=== PATIENT | female | born 1965 | race Caucasian/White ===

== ENCOUNTER 2024-05-22 07:51 | Day surgery (SDC) | payer OTHER, SELFPAY ==
[2024-05-22] VITALS (15 sets, daily range): BP systolic 95–148; BP diastolic 34–94; BMI 36.0
[2024-05-22 09:00] LABS: Hematocrit 36.1 % (37.0-47.0); Hemoglobin 12.6 g/dL (12.0-16.0); Mean Corp Hgb Conc. 34.9 g/dL (33.0-37.0); Mean Corpuscular Hgb 30.3 pg (27.0-31.0); Mean Corpuscular Volume 86.8 fL (81.0-99.0); Mean Platelet Volume 9.9 fL (7.4-10.4); Platelet Count 288 10^3/uL (130-400); Red Blood Cell Count 4.16 10^6/uL (4.20-5.40); Red Cell Dist. Width 13.7 % (11.5-14.5); White Blood Cell Count 6.8 10^3/uL (4.8-10.8)
[2024-05-22 09:09] LABS: INR 1.05; PT 13.6 Sec (11.4-14.6)
[2024-05-22 09:10] LABS: APTT 26.9 Sec (23.4-35.0)
[2024-05-22 09:12] LABS: Blood Urea Nitrogen 15 mg/dl (7-17); Calcium 9.8 mg/dl (8.4-10.2); Carbon Dioxide 27 mmol/L (22-30); Chloride 105 mmol/L (98-107); Estimated Creatinine Clearance 70 ml/min; Glucose 144 mg/dl (70-99); Potassium 4.1 mmol/L (3.5-5.1); Sodium 139 mmol/L (135-145); eGFR > 60.00
[2024-05-22] MEDS: NSS 267 ML IV (09:41)
--- NOTE | 2024-05-22 10:08 | W.SUR.PREOP ---
Pre-Operative Surgical Note
-
I have examined this patient prior to the performance of the scheduled procedure.
The patient's condition is unchanged from the time of the current History and
Physical and the patient is able to undergo the scheduled procedure.
--- NOTE | 2024-05-22 12:05 | W.SUR.POST ---
Surgical Immediate Post Op
Note
Pre Op Diagnosis: Peripheral arterial disease
Post Op Diagnosis: Peripheral arterial disease
Procedure Performed: Bilateral lower extremity angiogram
Primary Surgeon: Jayson Akbar MD
Secondary Surgeons: Kailash Acosta MD, PhD
Anesthesia: Per Anesthesia
Estimated Blood Loss: 50 cc
Fluids: Per Anesthesia
Drains/Shunts: None
Specimens/Cultures: None
Doppler/Duplex/Angio (Y/N): Yes
Complications: None
Operative Findings: Diagnostic angiogram; RIGHT: 1-2 cm SFA stump, popliteal reconstitution with single vessel (AT) run off and Peroneal reconstitution distally followed by PT reconstitution at the ankle; LEFT: 2 cm SFA stump, popliteal
reconstitution, two vessel run off (AT and Peroneal)
[2024-05-22 12:57] LABS: Glucose - Point of Care 147 mg/dl (70-99)
[2024-05-22] MEDS: NSS 1000 IV (14:07)
[2024-05-22 15:47] LABS: Glucose - Point of Care 168 mg/dl (70-99)
[2024-05-22] MEDS: NOVOLOG vial 1 UNITS SC (16:12)
--- NOTE | 2024-05-22 16:23 | OR.RPT ---
Operative Report
Operative Report
Date of Operation: 05/22/2024
Pre Op Diagnosis: Debilitating bilateral lower extremity claudication
Post Op Diagnosis: Debilitating bilateral lower extremity claudication
Procedure:
1.) Selective catheterization of second-order lower extremity artery
2.) Diagnostic aortobiiliac arteriogram
3.) Diagnostic BILATERAL lower extremity arteriogram
4.) Ultrasound-guided percutaneous access to the left common femoral artery
Surgeon: Jayson Akbar III, MD
M[employer]al [employer]: Kailash Acosta MD PhD PGY-6
Anesthesia: Sedation with local
Fluoroscopy:
9.6 min
124 mGy
44.95 Gy.cm2
Complications: None
Estimated Blood Loss: Minimal
History and Indications for Procedure: 59-year-old female with peripheral arterial occlusive disease and severe bilateral lower extremity claudication.
Procedure in Detail: Cynthia Ellis was correctly identified and placed supine on the operating table. After adequate induction of anesthesia the bilateral groins were prepped and draped in the usual sterile fashion. A timeout was performed with
the nursing and anesthesia staff confirming the patient's identity as well as the nature and laterality of the procedure.
The left common femoral artery was identified under ultrasound guidance. The artery was patent. The superior and inferior aspects of the femoral head were identified with radiographic guidance and marked at the skin level. The proposed puncture site
was infiltrated with local anesthesia. We saved a copy of the ultrasound image to the medical record. Under ultrasound guidance we accessed the left common femoral artery with a micropuncture needle and upsized to a 5 Fr sheath over a Bentson wire.
The wire and a [employer] hook flush catheter were advanced into the distal abdominal aorta and a diagnostic aorto-biiliac arteriogram was performed:
AORTO-ILIAC ARTERIOGRAM:
Aorta: Patent with no stenosis identified
Right common iliac artery: Patent with no stenosis identified
Right external iliac artery: Patent with no stenosis identified
Left common iliac artery: Patent with no stenosis identified
Left external iliac artery: Patent with no stenosis identified
Under roadmap guidance using a Glidewire and the [employer] hook catheter we selected the right common iliac artery and then the external iliac artery. A catheter was tracked up and over the aortic bifurcation and placed in the distal external iliac
artery. A diagnostic right lower extremity arteriogram was then performed which demonstrated the following:
RIGHT LOWER EXTREMITY:
Common femoral artery: Patent with no stenosis identified
Profunda femoral artery: Patent with no stenosis identified
Superficial femoral artery: Short patent stump and then occluded thereafter. No distal reconstitution
Popliteal artery: Occluded above the knee. Reconstitutes behind the knee at the tibial plateau. Patent distally with no stenosis identified
Anterior tibial artery: Patent as the single tibial runoff vessel. No stenosis identified. Crosses the foot deform the dorsalis pedis artery
Tibioperoneal trunk: Occluded
Peroneal artery: Occluded with distal reconstitution at the ankle
Posterior tibial artery: Occluded with distal reconstitution at the ankle
We then pulled the catheter from the 5 Salvadorean sheath. A left lower extremity runoff arteriogram was performed.
LEFT LOWER EXTREMITY:
Common femoral artery: Patent with no stenosis identified
Profunda femoral artery: Patent with no stenosis identified
Superficial femoral artery: Short stump patent but then occludes.
Popliteal artery: Reconstitutes above the knee. Patent with no stenosis identified
Two-vessel tibial runoff identified via the anterior tibial and peroneal artery. Posterior tibial artery occluded
Satisfied with this diagnostic result we then concluded the procedure. The patient tolerated the procedure well and was taken to the recovery area in stable condition.
Attestation: I was present and responsible for the entire procedure.
Signed:
Jayson Akbar III, MD
[facility]
[phone] (xbhe)
== END 2024-05-22 18:10 | disposition home or self-care (01) ==
LOC: CATH 07:51
PROVIDERS: ATTENDING PHYSICIAN Surgery Vascular Surgery; FAMILY PHYSICIAN Family Medicine; OTHER PHYSICIAN Internal Medicine Cardiovascular Disease
DX: I70.212 Atherosclerosis of native arteries of extremities with intermittent claudication, left leg (principal); I70.221 Atherosclerosis of native arteries of extremities with rest pain, right leg; Z87.891 Personal history of nicotine dependence; Z79.82 Long term (current) use of aspirin; Z79.84 Long term (current) use of oral hypoglycemic drugs; Z79.02 Long term (current) use of antithrombotics/antiplatelets; Z79.01 Long term (current) use of anticoagulants; Z79.899 Other long term (current) drug therapy; E11.9 Type 2 diabetes mellitus without complications; Z86.73 Personal history of transient ischemic attack (TIA), and cerebral infarction without residual deficits; Z89.411 Acquired absence of right great toe
CPT/HCPCS: 36246; 75625; 75716; 76937; 80048; 82962; 85027; 85610; 85730; C1894; Q9967

== ENCOUNTER 2024-06-08 09:58 | Inpatient (IN) | payer OTHER, SELFPAY ==
[2024-06-02 09:18] VITALS: BMI 36.2
[2024-06-02 09:46] LABS: % Basophils 0.6 % (0-2); % Eosinophils 4.2 % (0-6); % Immature Granulocytes 0.3 % (0-0.5); % Lymphocytes 25.3 % (20.5-51.1); % Monocytes 5.3 % (1.7-9.3); % Neutrophils 64.3 % (42.2-75.2); Absolute Basophils 0.1 10^3/uL (0-0.2); Absolute Eosinophils 0.4 10^3/uL (0-0.7); Absolute Lymphocytes 2.2 10^3/uL (1.2-3.4); Absolute Monocytes 0.5 10^3/uL (0.1-0.6); Absolute Neutrophils 5.6 10^3/uL (1.4-6.5); Hematocrit 37.9 % (37.0-47.0); Hemoglobin 12.8 g/dL (12.0-16.0); Mean Corp Hgb Conc. 33.8 g/dL (33.0-37.0); Mean Corpuscular Hgb 30.4 pg (27.0-31.0); Mean Platelet Volume 9.8 fL (7.4-10.4); Nucleated Red Blood Cells % 0 %; Platelet Count 284 10^3/uL (130-400); Red Blood Cell Count 4.21 10^6/uL (4.20-5.40); Red Cell Dist. Width 13.7 % (11.5-14.5); White Blood Cell Count 8.7 10^3/uL (4.8-10.8)
[2024-06-02 09:59] LABS: INR 1.03; PT 13.4 Sec (11.4-14.6)
[2024-06-02 10:00] LABS: APTT 30.9 Sec (23.4-35.0)
[2024-06-02 10:03] LABS: Blood Urea Nitrogen 22 mg/dl (7-17); Calcium 10.1 mg/dl (8.4-10.2); Carbon Dioxide 24 mmol/L (22-30); Chloride 102 mmol/L (98-107); Estimated Creatinine Clearance 57 ml/min; Glucose 138 mg/dl (70-99); Potassium 4.8 mmol/L (3.5-5.1); Sodium 139 mmol/L (135-145); eGFR 57.88
--- NOTE | 2024-06-04 13:30 | PTCARENOTE ---
Patients 06/02 GFR - 57.88- Meg @ Dr. Morrell office notified
[2024-06-08] VITALS (18 sets, daily range): BP systolic 86–127; BP diastolic 55–87; BMI 35.3
[2024-06-08 11:12] LABS: Glucose - Point of Care 120 mg/dl (70-99)
[2024-06-08] MEDS: BACTROBAN NASAL 1 GRAM NASAL (11:24)
[2024-06-08] MEDS: PERIDEX 0.12% ORAL RINSE 15 ML PO (11:25)
[2024-06-08] MEDS: NSS 269 ML IV (11:25)
[2024-06-08 16:22] LABS: ACT-LR - POC 186 Seconds (116-155)
[2024-06-08 16:45] LABS: ACT-LR - POC 232 Seconds (116-155)
[2024-06-08 17:36] LABS: ACT-LR - POC 223 Seconds (116-155)
[2024-06-08 18:36] LABS: ACT-LR - POC 216 Seconds (116-155)
[2024-06-08 19:35] LABS: Glucose - Point of Care 169 mg/dl (70-99)
--- NOTE | 2024-06-08 19:54 | W.SUR.POST ---
Surgical Immediate Post Op
Note
Pre Op Diagnosis: PAOD
Post Op Diagnosis: PAOD
Procedure Performed: RIGHT Detour procedure
Primary Surgeon: Jayson Akbar MD
Secondary Surgeons: Kailash Acosta MD, PhD
Anesthesia: Per Anesthesia
Estimated Blood Loss: 150 cc
Fluids: Per Anesthesia
Drains/Shunts: None
Specimens/Cultures: None
Doppler/Duplex/Angio (Y/N): Multiple right-sided venograms and angiograms
Complications: None
Operative Findings: Left femoral access and right tibial vein acecss, up and over to right SFA, SFA-FV anastamosis, right PT access to successfully acquire distal right arterial access to complete detour, snare deployed to create second A-V
anastamosis in the popliteal artery, deployment of Detour stents and angioplasty, angioplasty of the proximal AT, completion angio with adequate outflow.
[2024-06-08 21:01] LABS: Hematocrit 33.8 % (37.0-47.0); Hemoglobin 11.5 g/dL (12.0-16.0); Mean Corpuscular Hgb 29.9 pg (27.0-31.0); Mean Platelet Volume 9.6 fL (7.4-10.4); Platelet Count 259 10^3/uL (130-400); Red Blood Cell Count 3.84 10^6/uL (4.20-5.40); White Blood Cell Count 10.3 10^3/uL (4.8-10.8)
[2024-06-08 21:12] LABS: PT 14.8 Sec (11.4-14.6)
[2024-06-08] MEDS: NSS 1000 IV (21:17)
[2024-06-08 21:26] LABS: Blood Urea Nitrogen 17 mg/dl (7-17); Carbon Dioxide 23 mmol/L (22-30); Chloride 104 mmol/L (98-107); Estimated Creatinine Clearance 63 ml/min; Glucose 190 mg/dl (70-99); Magnesium 1.6 mg/dl (1.6-2.3); Phosphorus 4.4 mg/dl (2.5-4.5); Potassium 5.2 mmol/L (3.5-5.1); Sodium 140 mmol/L (135-145); eGFR > 60.00
[2024-06-08 21:29] LABS: APTT > 200 Sec (23.4-35.0)
[2024-06-08 21:30] LABS: INR 1.18
--- NOTE | 2024-06-08 21:30 | PTCARENOTE ---
Assumed care of pt from PACU, Beninese speaking language line @ bedside, AAO moves all extremities, NSR 60s + radials Doppler pedals, SATS 95% RA, Belly round soft non-tender BSx4, 16F luo output clearish yellow, incisional wound L groin open to
air with surgical adhesive, R ankle surgical site dry and intact 4x4 with tegaderm, NS 80ml/hr running, pt updated daughter via telephone, call curiel within reach, otherwise refer to documentation
[2024-06-08] MEDS: LIPITOR 40 MG PO (22:30)
[2024-06-08] MEDS: TYLENOL 650 MG PO (22:31)
[2024-06-08] MEDS: PLAVIX 150 MG PO (22:31)
[2024-06-08] MEDS: ZETIA 10 MG PO (22:31)
[2024-06-08] MEDS: HEPARIN 25000 UNITS/250 ML IV (22:34)
[2024-06-08 22:38] LABS: Glucose - Point of Care 198 mg/dl (70-99)
[2024-06-08] MEDS: MAGNESIUM SULFATE 100 IV (22:48)
[2024-06-08] MEDS: NOVOLOG FLEXPEN-MODERATE RESISTANCE 1 UNITS SC (23:06)
--- NOTE | 2024-06-08 23:56 | PTCARENOTE ---
Notified Dr. Akbar of PTT result of >200. Ordered heparin gtt to start at 22:45 at 1600 units/hr. Next PTT to be collected per protocol.
[2024-06-09] VITALS (17 sets, daily range): BP systolic 91–137; BP diastolic 52–101; BMI 35.8
--- NOTE | 2024-06-09 00:37 | OR.RPT ---
Operative Report
Operative Report
Date of Operation: 06/08/2024
Pre Op Diagnosis:
1.) Peripheral arterial occlusive disease with debilitating right lower extremity claudication
2.) Diabetes
3.) Obesity
Post Op Diagnosis:
1.) Peripheral arterial occlusive disease with debilitating right lower extremity claudication
2.) Diabetes
3.) Obesity
Procedure:
1.) Percutaneous transmural artery bypass using the DETOUR system (conduit through right femoral vein to right popliteal artery)
2.) Endovenous femoropopliteal arterial revascularization with transcatheter placement of stent grafts:
Overlapping TORUS stent grafts (distal to proximal):
5.5 mm x 200 mm (distal)
6 mm x 200 mm
6.7 mm x 200 mm (proximal)
3.) Right lower extremity venogram
4.) Ultrasound-guided percutaneous access to the right posterior tibial tibial vein
5.) Ultrasound-guided percutaneous access to the left common femoral artery
6.) Ultrasound-guided percutaneous retrograde access to the right posterior tibial artery
7.) Balloon angioplasty of the right popliteal artery target from retrograde approach to facilitate arterial reentry for PTAB
8.) Balloon angioplasty of the proximal right anterior tibial artery (3 mm x 40 mm angioplasty balloon)
9.) Balloon angioplasty of the right tibioperoneal trunk/posterior tibial artery (2.5 mm x 120 mm angioplasty balloon)
10.) ProGlide closure of the left common femoral artery access
Surgeon: Jayson Akbar III, MD
Firer Diesel Locomotive: Kailash Acosta MD PhD PGY-6
Anesthesia: General
Complications: None
Estimated Blood Loss: 150 cc
Fluoroscopy:
171.4 min
1037 mGy
155.38 DAP
History and Indications for Procedure: 59-year-old female with diabetes, obesity and peripheral arterial disease with severe debilitating lower extremity claudication.
Procedure in Detail: Cynthia Ellis was correctly identified and placed supine on the operating table. After adequate induction of anesthesia the bilateral groins as well as the right calf, ankle and foot were prepped and draped in the usual
sterile fashion. Preoperative antibiotics were administered. A timeout procedure was performed with the nursing and anesthesia staff confirming the patient's identity as well as the nature and laterality of the procedure.
The left common femoral artery was identified under ultrasound guidance. The artery was patent. The superior and inferior aspects of the femoral head were identified with radiographic guidance and marked at the skin level. The proposed puncture site
was infiltrated with local anesthesia. We saved a copy of the ultrasound image to the medical record. Under ultrasound guidance we accessed the left common femoral artery with a micropuncture needle and upsized to a 5 Fr sheath over a Bentson wire.
The wire and a [employer] hook flush catheter were advanced into the distal abdominal aorta. The right common iliac artery followed by the external iliac artery were selected with a Glidewire and the Navarro's hook catheter. The wire was exchanged
out for a Storq wire. An 8 Uzbek 55 cm sheath was then inserted over the wire and the radiopaque tip was advanced to the bottom of the right femoral head.
Ultrasound-guided percutaneous venous access was achieved in the posterior tibial tibial vein at the ankle. A long 6 Uzbek sheath was then inserted over a Bentson wire. The Bentson wire was easily advanced to the proximal right thigh. A venogram
was performed. The deep venous system was patent with no filling defects identified
Systemic heparin was administered.
A 6 Uzbek EnSnare catheter was inserted through the venous sheath and advanced over the Bentson wire to the proximal thigh. The EnSnare was then inserted through the catheter to the proximal thigh.
Under roadmap guidance the right superficial femoral artery was selected with a Quickcross and Glidewire. The proximal superficial femoral artery was predilated with a 4 mm x 40 mm angioplasty balloon. I then exchanged out for a 0.014 BMW wire and
positioned this in the superficial femoral artery.
Through the 8 Uzbek sheath the ENDOCROSS device was inserted over the BMW0.014 wire and advanced into the proximal SFA, 3 cm distal to the femoral bifurcation. The ENDOCROSS was oriented and fired a single time into the femoral vein, creating the
proximal anastomosis. A 300 cm 0.014 grand slam wire was advanced through the back end of the ENDOCROSS device and into the vein. The wire in the femoral vein was snared and then externalized through the 6 Uzbek venous sheath.
The ENDOCROSS was then removed from the 8 Uzbek sheath and re-prepped on the back table. A 4 mm x 40 mm angioplasty balloon was then advanced over the 0.014 wire and used to dilate the proximal arterial/venous anastomosis. TheENDOCROSS was once
again advanced over the 0.014 wire, through the proximal anastomosis, into the vein and positioned distal to the occlusive disease. An arteriogram was then performed through the 8 Uzbek sheath to visualize the reconstituted popliteal artery
segment.
Distal reentry was a very challenging portion of this procedure. The ENDOCROSS was oriented and deployed several times unsuccessfully. We could not achieve access to the distal target artery. At this point I decided to proceed with retrograde
pedal access. Under ultrasound guidance I obtained micropuncture needle access to the posterior tibial artery at the ankle. I then upsized to a 4 Uzbek sheath. Using a Quickcross and Glidewire I was able to cross the occluded posterior tibial
artery segment and navigate to the popliteal artery behind the knee. An arteriogram was performed which confirmed proper true lumen position with the Quickcross in the popliteal artery. I then placed a 0.014 wire in the popliteal artery advancing
it to the level of the occlusion. I then brought into position a 5 mm x 80 mm angioplasty balloon. This was inflated to nominal pressure in the popliteal artery behind the knee and below the knee. Using the inflated angioplasty balloon as a
target we were then able to successfully cross by puncturing the balloon with the needle from the ENDOCROSS device. We successfully gained access to the popliteal artery using this technique. The grand slam 0.014 wire was advanced through the
popliteal artery and into the posterior tibial artery to maximize wire purchase. The ENDOCROSS was removed over the wire. A 4 mm x 40 mm angioplasty balloon was advanced over the 0.014 wire and across the distal venous/artery anastomosis.
Angioplasty was performed on the distal anastomosis as well as the proximal anastomosis once again.
Next, telescoped 0.018 and 0.035 CXI catheters were advanced together over the 0.014 wire and into the popliteal artery. The smaller CXI catheter and the 0.014 wire were removed. A Supra Core 0.035 wire was advanced through the CXI and positioned
in the posterior tibial artery.
The first 5.5 mm x 200 mm TORUS stent graft was placed in the desired location, providing 3 cm of distal landing zone in the popliteal artery. The length of distal landing zone was confirmed using external radiopaque measuring tape. The stent
graft was deployed and the delivery system removed. The second stent, 6 mm x 200 mm TORUS stent graft was placed in the desired location, with 6 cm of overlap into the first stent. The stent was deployed in the desired location and the delivery
system removed over the wire. An arteriogram was then performed under magnification view to clearly identify the femoral bifurcation, proximal superficial femoral artery and profunda femoral artery origin. The final stent, a 6.7 mm x 200 mm TORUS
stent graft was placed in the desired location, with 6 cm of overlap into the prior stent and carefully deployed in the desired location with the proximal end of the stent 2 mm above the proximal edge of the SFA/profunda femoral artery bifurcation.
The delivery system was removed. The proximal TORUS stent graft bypass was postdilated with a 7 mm x 100 mm angioplasty balloon. The mid and distal portions of the stent graft bypass were postdilated with a 6 mm x 140 mm angioplasty balloon. We
pay particular attention to the proximal and distal anastomotic sites as well as all areas of overlap.
A final arteriogram was performed which demonstrated an excellent technical result. The common femoral artery and profunda femoral artery were widely patent. The TORUS stent graft bypass was widely patent with good flow and no areas of filling
defects or stenosis. The popliteal artery runoff distally was patent. There was single-vessel runoff through the anterior tibial artery which did appear to have some luminal filling defects at the origin and proximal aspect. A completion venogram
was also performed and confirmed flow through a patent right femoral vein.
I then focused my attention on treating the areas of concern in the proximal anterior tibial artery. Under roadmap guidance using a Quickcross catheter and Glidewire I selected the anterior tibial artery. I exchanged the wire out for a 0.014 wire.
With the retrograde wire in the posterior tibial artery I positioned this in the popliteal artery stents. Simultaneous balloon angioplasty was then performed with a 2.5 mm x 40 mm angioplasty balloon in the proximal anterior tibial artery and a
2.5 mm x 120 mm angioplasty balloon in the tibioperoneal trunk/posterior tibial artery. The proximal aspects of each of these balloons extended into the popliteal artery below the knee. I continued to treat the entire length of the posterior
tibial artery with the 2.5 mm angioplasty balloon down to the sheath access site. Subsequent arteriogram demonstrated an improved but suboptimal technical result with continued area of filling defect within the origin/proximal anterior tibial
artery. No flow was seen through the tibioperoneal trunk/peroneal artery likely due to outflow obstruction from either the sheath or because the access site in the posterior tibial artery appeared to be proximal to the reconstituted posterior
tibial artery segment and may have been occluded. Therefore I brought into position a 3 mm x 40 mm angioplasty balloon under roadmap guidance. I positioned this in the proximal anterior tibial artery across the origin. The balloon was inflated to
nominal pressure, held in place for 2 minutes and then slowly deflated. A subsequent arteriogram demonstrated an excellent technical result with a widely patent popliteal artery and anterior tibial artery and no residual filling defects or stenoses
identified.
Satisfied with this result we then concluded the procedure. The 8 Uzbek sheath was pulled back over the wire into the left external iliac artery. The wire was pulled back to the aortic bifurcation and readvanced into the distal abdominal aorta.
A single Pro-glide closure device was advanced over the wire through the femoral artery access and fired. The knots were secured, the wire was removed and hemostasis was achieved. Protamine was administered. Direct manual pressure was held over
the arterial puncture site for an additional 10 minutes. A sterile dressing was applied
Manual pressure was applied to the venous access site after removal of the 6 Uzbek sheath. Direct manual pressure was applied to the posterior tibial artery access site after removal of the 4 Uzbek sheath. Hemostasis was achieved at all puncture
sites. Sterile dressings were applied.
The patient tolerated the procedure well. She was taken to the recovery room in stable condition.
Attestation: I was present and responsible for the entire procedure
Signed:
Jayson Akbar III, MD
[facility]
[phone] (cell)
[2024-06-09 05:31] LABS: Hematocrit 33.9 % (37.0-47.0); Hemoglobin 11.7 g/dL (12.0-16.0); Mean Corp Hgb Conc. 34.5 g/dL (33.0-37.0); Mean Corpuscular Volume 89.9 fL (81.0-99.0); Mean Platelet Volume 10.3 fL (7.4-10.4); Platelet Count 273 10^3/uL (130-400); Red Blood Cell Count 3.77 10^6/uL (4.20-5.40); Red Cell Dist. Width 13.9 % (11.5-14.5); White Blood Cell Count 9.9 10^3/uL (4.8-10.8)
[2024-06-09 05:37] LABS: Blood Urea Nitrogen 16 mg/dl (7-17); Calcium 9.3 mg/dl (8.4-10.2); Carbon Dioxide 22 mmol/L (22-30); Chloride 107 mmol/L (98-107); Estimated Creatinine Clearance 70 ml/min; Glucose 193 mg/dl (70-99); Magnesium 1.9 mg/dl (1.6-2.3); Potassium 4.6 mmol/L (3.5-5.1); Sodium 141 mmol/L (135-145); eGFR > 60.00
[2024-06-09 05:48] LABS: PT 14.1 Sec (11.4-14.6)
[2024-06-09 06:22] LABS: APTT 92.1 Sec (23.4-35.0)
[2024-06-09] MEDS: NOVOLOG FLEXPEN-MODERATE RESISTANCE SC (06:37)
[2024-06-09] MEDS: NORVASC 5 MG PO (07:47)
[2024-06-09] MEDS: IMDUR (EXTENDED RELEASE) 30 MG PO (07:47)
[2024-06-09] MEDS: PLAVIX 75 MG PO (07:47)
[2024-06-09] MEDS: ZOLOFT 25 MG PO (07:47)
[2024-06-09] MEDS: PEPCID 40 MG PO (07:48)
[2024-06-09] MEDS: ASPIR LOW (ENTERIC COATED) 81 MG PO (07:48)
[2024-06-09] MEDS: ORETIC 12.5 MG PO (07:48)
[2024-06-09 07:52] LABS: Glucose - Point of Care 147 mg/dl (70-99)
--- NOTE | 2024-06-09 08:00 | W.PN.VS ---
Today's Communication / Plan
-
See below.
Assessment/Plan
-
Assessment: 59-year-old female POD #1 Percutaneous transmural artery bypass using the DETOUR system (conduit through right femoral vein to right popliteal artery). Endovenous femoropopliteal arterial revascularization with transcatheter placement of
stent grafts.
Plan:
Will transition patient off of heparin infusion to p.o. Xarelto 20 mg p.o. daily, patient will initiate triple therapy of Plavix 75 mg p.o. daily, aspirin 81 mg p.o. daily, and Xarelto 20 mg p.o. daily for 1 month and then transition to Xarelto
with Plavix.
Can get out of bed to chair
Discontinue Akbar catheter
Possible discharge later today
Subjective Data
-
Date of Service: June 09, 2024
Patient seen and examined at bedside, reports mild discomfort posteriorly behind knee, otherwise she is comfortable. Tolerating p.o. diet.
Objective Data
-
Vital Signs
Temp Pulse Resp BP Pulse Ox
97.8 F 76 17 123/101 99
06/09/24 11:16 06/09/24 10:00 06/09/24 10:00 06/09/24 10:00 06/09/24 10:00
Intake and Output
06/08/24 06/09/24 06/10/24
06:59 06:59 06:59
Intake Total 1569 / 1569
Output Total 2400 / 2400
Balance -831 / -831
Intake:
Oral fluids 1200 / 1200
IV fluids (Total) 369 / 369
NSS 369 / 369
Output:
Urine, Akbar 2400 / 2400
Lab Results
06/09/24 04:45
06/09/24 04:45
Calcium 9.3 mg/dl (8.4-10.2) 06/09/24 04:45
Phosphorus 4.4 mg/dl (2.5-4.5) 06/08/24 20:55
Magnesium 1.9 mg/dl (1.6-2.3) 06/09/24 04:45
Physical Exam
-
Awake alert oriented x 3, no apparent distress
No tachycardia
No dyspnea on room air
Left groin puncture site CDI, no evidence of hematoma or edema
Right ankle puncture site CDI, no evidence of hematoma or edema
Doppler DP and PT signal at right foot
[2024-06-09] MEDS: ZEBETA 10 MG PO (09:12)
[2024-06-09] MEDS: ALTACE 10 MG PO (09:12)
--- NOTE | 2024-06-09 09:52 | PTCARENOTE ---
Received patient via handoff. AOx3, SPENCER. NSR (60's-70's), positive radial pulses and doppler pedals. 96% RA, clear and shallow breaths. Abdomen soft round and nontender. Akbar removed. Left groin incision and right ankle puncture CDI. 20G left AC,
18G left hand. Heparin gtt running. Safe environment maintained.
--- NOTE | 2024-06-09 10:33 | CM ---
CM following re: discharger planning.
Discussed in Rounds, reviewed pt's chart, met with pt and daughter Sade at bedside.
Pt is a 59 year old female, admitted with POA#1 s/p Percutaneous transmural artery bypass using the DETOUR system.
Pt reports she lives alone in an apartment, no steps to enter, has supportive daughter. Pt reports she ambulates with a walker at baseline and she has 10 hours of home health aide services daily provided by [facility]. Pt expressed her desire to
return back home today with resumptions of caregiver services and family support. Daughter stated she will transport her mother home.
PCP: Sergio Greco
Pharmacy: [facility]
D/C plan: home with resumptions of caregiver services and family support. Daughter to transport.
[2024-06-09] MEDS: XARELTO 20 MG PO (10:48)
--- NOTE | 2024-06-09 10:51 | W.PN.INTV ---
Today's Communication / Plan
Recommendations
-
Assessment
-
Assessment: Patient is a 59-year-old female who is coming to [facility] for an elective percutaneous transmural artery bypass using the DETOUR system (conduit through right femoral vein to right popliteal artery) and endovenous
femoral-popliteal arterial revascularization with transcatheter placement of stent grafts. She is a patient with a history of diabetes, obesity, hyperlipidemia, hypertension, CVA, and peripheral arterial disease with severe debilitating lower
extremity claudication. She is a refugee from the war in [facility] and struggles to abstain from smoking. Patient tolerated the procedure well and was transferred to the ICU. Patient is hemodynamically stable at the present time.
Chronic Conditions: History of CVA, peripheral artery disease, diabetes, obesity, hyperlipidemia, hypertension
Impression:
# Peripheral artery disease
# Severe Lower Extremity Claudication
S/P Right percutaneous transmural artery bypass using the DETOUR system on 06/09/24
# Hx of CVA
# Diabetes type 2
# Hyperlipidemia
# Hypertension
Plan:
-Postoperative surgical intensive care unit monitoring
-Supplemental oxygen as needed
-Incentive spirometry
-Aspiration precautions
-Nebulizer use if needed�currently not bronchospastic
-Chest x-ray on 06/02/24 showed no evidence of active cardiopulmonary disease.
-Neuro and vascular checks as per protocol
-Vascular surgery following- correspondence and operative notes reviewed
-Monitor blood pressure - currently 123/101
-Allow for mild permissive hypertension
-Cardene drip if needed
-Follow hemoglobin
-Patient hemodynamically stable
-Follow blood glucose, currently at 193 on 06/09
-Insulin on medium sliding scale initiated
-Pain controlled on Oxycodone and Hydromorphone as needed.
-Restart home medications
-DVT prophylaxis deferred until restarted by vascular surgery if indicated.
-Diet is 2000 calorie diabetic diet
-Early mobilization as tolerated
Data:
CXR on 06/02/24: No evidence of active cardiopulmonary disease. The lungs appear clear. Cardiac silhouette and vascular markings are within normal limits with no evidence for pulmonary edema or pleural effusion. Calcification of the thoracic aorta
with no radiographic evidence for thoracic aortic aneurysm.
Bilateral LE Angiogram on 05/22/24: Diagnostic angiogram; RIGHT: 1-2 cm SFA stump, popliteal reconstitution with single vessel (AT) run off and Peroneal reconstitution distally followed by PT reconstitution at the ankle; LEFT: 2 cm SFA stump,
popliteal reconstitution, two vessel run off (AT and Peroneal)
Subjective Dataa
Subjective Data
Date of Service:
Date of Service: June 09, 2024
Patient is recovering well following completion of her procedure. She offers no complaints at the present time
Objective Data
Data Reviewed
Vital Signs / I&O / Oxygen:
Vital Signs
Temp Pulse Resp BP Pulse Ox
98.2 F 76 17 123/101 99
06/09/24 08:04 06/09/24 10:00 06/09/24 10:00 06/09/24 10:00 06/09/24 10:00
Intake and Output
06/08/24 06/09/24 06/10/24
06:59 06:59 06:59
Intake Total 1569 / 1569
Output Total 2400 / 2400
Balance -831 / -831
SaO2 99
Physical Exam
General: Comfortable
HEENT: Normocephalic and Anicteric
Cardiovascular: Regular Rhythm
Respiratory: Clear and Non-Labored Respirations
GI: Soft, Non Distended, Non Tender and Normal Bowel Sounds
Neurology: Awake, Alert and Oriented
Labs/Micro/Reports
Lab Data
06/09/24 04:45
06/09/24 04:45
Laboratory Results
06/08/24 06/08/24 06/09/24
20:55 21:39 04:45
PT 14.8 H 14.1
INR 1.18 1.10
APTT > 200 H* Cancelled 92.1 H
[2024-06-09] MEDS: JANUVIA 100 MG PO (11:49)
[2024-06-09] MEDS: TYLENOL 650 MG PO (11:50)
--- NOTE | 2024-06-09 12:00 | PTCARENOTE ---
Pt complained of right leg (behind the knee) pain. Trace amount of swelling. NPCook made aware and came to change dressing. Popliteal, dorsalis and pedal pulses all found w/ Doppler. All systems reassessed, will continue to monitor.
[2024-06-09 12:21] LABS: Glucose - Point of Care 158 mg/dl (70-99)
[2024-06-09] MEDS: NOVOLOG FLEXPEN-MODERATE RESISTANCE 1 UNITS SC (12:58)
--- NOTE | 2024-06-09 15:49 | PTCARENOTE ---
All systems reassessed. Pulses found via Doppler bilaterally on LE. Pt awaiting discharge, will continue to monitor.
--- NOTE | 2024-06-09 16:02 | W.DS.TRANS ---
DC Summary - [employer]
-
Discharge Instructions:
Discharge Diagnosis/Procedures Percutaneous transmural artery bypass using the
DETOUR system (conduit through right femoral
vein to right popliteal artery)
Diet As tolerated
Activity No strenuous activity
Driving Restrictions No driving for 48 hours
Bathing Restrictions OK to Shower
Instructions:
Stand-Alone Forms: DC Instr - Vascular OR
Changes to Home Medications: Yes
Discharge Medications:
DC Medications w/original date entered in [employer]
amlodipine 5 mg tablet 5 mg PO DAILY Blood Pressure 08/30/23
atorvastatin 40 mg tablet 40 mg PO QPM High Cholesterol 08/30/23
hydrochlorothiazide 12.5 mg tablet 12.5 mg PO DAILY Fluid Retention/Swelling 08/30/23
metformin 1,000 mg tablet 1,000 mg PO BID Diabetes 08/30/23
nitroglycerin 0.4 mg sublingual tablet 0.4 mg sublingual [id number] PRN chest pain #25 tabs 08/30/23
ramipril 10 mg capsule 10 mg PO DAILY Blood Pressure 08/30/23
bisoprolol fumarate 10 mg tablet 10 mg PO DAILY Blood Pressure 05/21/24
ezetimibe 10 mg tablet 10 mg PO QPM High Cholesterol 05/21/24
famotidine 40 mg tablet 40 mg PO DAILY Gastrointestinal Issue 05/21/24
isosorbide mononitrate 30 mg tablet,extended release 24 hr 30 mg PO DAILY Heart Disease/Condition 05/21/24
sitagliptin phosphate 100 mg tablet (Januvia) 100 mg PO NOON Diabetes 05/21/24
cilostazol 100 mg tablet 100 mg PO BID Blood Clot Prevention/Tx 05/22/24
dapagliflozin propanediol 10 mg tablet (Farxiga) 10 mg PO DAILY Diabetes 05/22/24
sertraline 25 mg tablet 25 mg PO DAILY Mental Health/Anxiety 05/22/24
aspirin 81 mg tablet,delayed release 81 mg PO DAILY #30 tabs 06/09/24
clopidogrel 75 mg tablet 75 mg PO DAILY Blood Clot Prevention/Tx 06/09/24
rivaroxaban 20 mg tablet (Xarelto) 20 mg PO QPM #90 tabs 06/09/24
Home Medication Changes
Added:
rivaroxaban 20 mg tablet (Xarelto) 20 mg PO QPM #90 tabs 06/09/24
Held for 48 hours:
metformin 1,000 mg tablet 1,000 mg PO BID Diabetes 08/30/23
Stopped:
rivaroxaban 2.5 mg tablet (Xarelto) 20 mg PO BID #90 tabs 06/09/24
Pending Results: No
--- NOTE | 2024-06-09 16:46 | PTCARENOTE ---
Pt. discharged, IV's removed, medication education and discharge instructions provided. Chemic Mangler used, patients very receptive. Transported to car via wheelchair by nurse.
== END 2024-06-09 17:26 | disposition home or self-care (01) | DRG 254 ==
LOC: ICU 09:58
PROVIDERS: Nurse Practitioner; ADMITTING PHYSICIAN Surgery Vascular Surgery; FAMILY PHYSICIAN Internal Medicine
PROC: X2KH3E9 Bypass Right Femoral Artery using Conduit through Femoral Vein to Popliteal Artery, Percutaneous Approach, New Technology Group 9 (ICD-10-PCS; 2024-06-09)
DX: E11.51 Type 2 diabetes mellitus with diabetic peripheral angiopathy without gangrene (principal); I70.213 Atherosclerosis of native arteries of extremities with intermittent claudication, bilateral legs; I10 Essential (primary) hypertension; E66.9 Obesity, unspecified; Z68.35 Body mass index [BMI] 35.0-35.9, adult; Z79.01 Long term (current) use of anticoagulants; Z79.02 Long term (current) use of antithrombotics/antiplatelets; Z79.84 Long term (current) use of oral hypoglycemic drugs; Z79.82 Long term (current) use of aspirin; Z86.73 Personal history of transient ischemic attack (TIA), and cerebral infarction without residual deficits; Z89.411 Acquired absence of right great toe; Z87.891 Personal history of nicotine dependence
CPT/HCPCS: 35556; 36005; 36415; 37228; 37232; 71046; 75820; 76937; 80048; 82962; 83735; 84100; 85025; 85027; 85610; 85730; 86850; 86900; 86901; 87070; C1725; C1760; C1769; C1773; C1887; C1894

== ENCOUNTER 2024-06-19 20:19 | Emergency (ER) | payer OTHER, SELFPAY ==
[2024-06-19 20:26] VITALS: BP 159/88
[2024-06-19 20:45] VITALS: BP 126/80
[2024-06-19 21:00] VITALS: BP 121/74
[2024-06-19 22:00] VITALS: BP 117/71
[2024-06-19 22:39] VITALS: BP 114/76
--- NOTE | 2024-06-19 22:51 | ED.GENMED ---
History of Present Illness
General
Chief Complaint: Swelling
Source: patient and records
Exam Limitations: none
Time Seen by Provider: 06/19/24 20:30
Nursing documentation reviewed up to this point in time: agreed with
History of Present Illness
History of Present Illness:
59-year-old female with history as documented presents to the emergency room for evaluation of leg swelling. Patient had bypass surgery 06/08/2024 for right lower extremity claudication symptoms with Dr. Akbar. She says that over the past few days
she has had increasing swelling of the right leg. She has not had any pain in the leg. She says that she discussed with Dr. Akbar who recommended she come to the emergency room for assessment. She denies any other complaints. She is on Xarelto
and aspirin postoperatively and has been compliant.
Review of Systems
Review of Systems
All Other Systems: ROS reviewed and negative except as documented in HPI and ROS
Constitutional: Denies fever
Respiratory: Denies trouble breathing
Cardiac: Denies chest pain
Musculoskeletal: Reports edema
Phy Exam
Physical Exam
Physical Exam:
General: Awake, alert, oriented x3; no acute distress
Head: Normocephalic, atraumatic
Eyes: Conjunctiva normal
Throat: Airway intact, handling secretions
Lungs: Breathing comfortably no distress, no evidence of accessory muscle use, no cyanosis
Heart: Regular rate
Neuro: No gross deficits
Skin: no rash
Extremities: Patient has +2 pitting edema right lower extremity, no edema in the left lower extremity; both legs are warm and well-perfused, specifically distal right lower extremity is warm with brisk capillary refill; she is status post amputation
of the right first digit; she has pulses by Doppler DP/PT, popliteal and palpable femoral pulse; she has no reproducible tenderness in the right lower extremity; she has minor old appearing bruise right anterior suero (she said had minor trauma on a
bed frame); she has no palpable masses or pseudoaneurysm in the groin
Scores
Heart Failure Risk
Heart Failure Risk Score: Not Applicable
Heart Score for Chest Pain Patients
STEMI patient?: Not applicable
Withdrawal Assessment of Alcohol
Withdrawal Assessment Completed?: Not applicable
Course
Orders/Labs/Results
Orders:
Orders
06/19/24 21:22
US Periph Venous LOWER Ext RT Urgent
Comment:
Reason For Exam: RLE swelling post op
Vital Signs
Initial and Last Documented VS:
Initial Vital Signs
Temp Pulse Resp BP Pulse Ox
36.4 C 89 18 159/88 99
06/19/24 20:26 06/19/24 20:26 06/19/24 20:26 06/19/24 20:26 06/19/24 20:26
Last Documented Vital Signs
Temp Pulse Resp BP Pulse Ox
36.4 C 75 14 117/71 99
06/19/24 20:26 06/19/24 22:00 06/19/24 22:00 06/19/24 22:00 06/19/24 22:00
MDM/Problems Addressed
Differential Diagnosis Includes:
DVT, postoperative edema; low clinical suspicion for arterial pathology with good vascular exam and no pain
MDM/Problems Addressed:
59-year-old female presents with right lower extremity swelling postoperatively after bypass per right lower extremity claudication symptoms on 06/08/[address] Akbar. Hypertensive in triage normalized by my assessment, rest of vitals normal.
Physical exam as above�notably has +2 right lower extremity edema, warm extremity with good pulse exam. She is not having any pain. Has no tenderness. Case discussed with vascular surgery, will send for a DVT study to rule out venous clot, hold
on arterial imaging with reassuring exam and no pain. Suspect likely normal postoperative swelling.
Ultrasound negative for DVT. Vital stable. Likely postoperative edema, stable for discharge to follow-up with vascular surgery as an outpatient. Spoke about return precautions and all questions answered.
Acute Exacerbation and/or Progression of Chronic Illness:
Acutely hypertensive resolved without intervention; continue to monitor but no additional hypertensive indicated at present
*Radiology
Radiology exam reviewed: radiology read reviewed
*Pulse Oximetry
Patient hypoxic: no
*Critical Care Note
Total Time (30-74mins, 75-104mins- exclusive of procedures): Not Applicable
Data Reviewed
Source: patient
Patient Management
Discussion with other providers: Rehabilitation Team Lead (Discussed with vascular surgeon)
ED Attending Note
-
Portions of this chart may have been created with voice recognition software.� Occasional wrong word or��sound alike� substitutions may have occurred due to the inherent limitations of voice recognition software.
Discharge Plan
Departure
Patient Disposition: Home (Routine Discharge)
Date of Disposition: 06/19/24
Time of Disposition: 22:57
Patient with high blood pressure during this ER visit?: Yes
Discharge Problem:
Edema of lower extremity
Instructions: Dependent Edema (DC)
Prescriptions:
No Action
atorvastatin 40 mg Tablet
40 mg PO QPM
amlodipine 5 mg Tablet
5 mg PO DAILY
metformin 1,000 mg Tablet
1,000 mg PO BID
ramipril 10 mg Capsule
10 mg PO DAILY
hydrochlorothiazide 12.5 mg Tablet
12.5 mg PO DAILY
nitroglycerin 0.4 mg tablet, sublingual
0.4 mg sublingual [id number] PRN (Reason: chest pain) Qty: 25 2RF
famotidine 40 mg Tablet
40 mg PO DAILY
ezetimibe 10 mg Tablet
10 mg PO QPM
isosorbide mononitrate 30 mg Tablet Extended Release 24 Hr
30 mg PO DAILY
bisoprolol fumarate 10 mg Tablet
10 mg PO DAILY
Januvia 100 mg Tablet
100 mg PO NOON
cilostazol 100 mg Tablet
100 mg PO BID
sertraline 25 mg Tablet
25 mg PO DAILY
dapagliflozin propanediol [Farxiga] 10 mg Tablet
10 mg PO DAILY
clopidogrel 75 mg tablet
75 mg PO DAILY
Patient Comments:
Did not take on and
Xarelto 20 mg Tablet
20 mg PO QPM Qty: 90 0RF
aspirin 81 mg Tablet,Delayed Release (Dr/Ec)
81 mg PO DAILY Qty: 30 0RF
Referrals:
Jayson Akbar III, MD [Active] - Call in 1-3 days for appt (Vascular surgeon)
Radha Fernando DO [Family Provider] -
Activity Restrictions/Additional Instructions:
Thank you for visiting the Emergency Department at [facility].
1. Please schedule a follow up appointment as directed. Call first thing tomorrow morning to make an appointment.
2. If indicated, please take your medications as instructed and indicated on discharge paperwork.
3. If any of your symptoms do not improve, or persist, or become more severe within 6-12 hours, please return to the emergency department for further care.
4. Please return to the emergency department if you develop a headache, neck pain/stiffness, fever greater than 100.4F, chest pain, shortness of breath, persistent nausea, vomiting, slurred speech, difficulty walking, numbness/tingling, weakness,
signs of infection or any other symptoms that are worrisome to you.
Please call [phone] if you have any questions.
Interventions
Interventions:
ED- Cardiac Assessment Last Done: 06/19/24 20:45
ED- Pulmonary Assessment Last Done: 06/19/24 20:45
ED-Skin Assessment Last Done: 06/19/24 20:45
Discharge Date and Time
Print Language: Kittitian
[2024-06-19 23:00] VITALS: BP 121/75
== END 2024-06-19 23:04 | disposition home or self-care (01) ==
LOC: EMR 20:19
PROVIDERS: EMERGENCY PHYSICIAN Emergency Medicine; FAMILY PHYSICIAN Family Medicine
DX: R60.0 Localized edema (principal); I69.354 Hemiplegia and hemiparesis following cerebral infarction affecting left non-dominant side; I10 Essential (primary) hypertension; E78.5 Hyperlipidemia, unspecified; K21.9 Gastro-esophageal reflux disease without esophagitis; E11.36 Type 2 diabetes mellitus with diabetic cataract; H26.9 Unspecified cataract; Z79.01 Long term (current) use of anticoagulants; Z79.82 Long term (current) use of aspirin; Z98.890 Other specified postprocedural states; Z88.8 Allergy status to other drugs, medicaments and biological substances
CPT/HCPCS: 99284; 93971

== ENCOUNTER → 2024-07-07 09:11 | Outpatient (REF) | payer OTHER, SELFPAY | LOC: RAD 09:11 | PROVIDERS: ATTENDING PHYSICIAN Physician Assistant | DX: I77.9 Disorder of arteries and arterioles, unspecified (principal); M79.89 Other specified soft tissue disorders | CPT/HCPCS: 93922; 93925; 93971 ==

== ENCOUNTER → 2025-02-19 10:09 | Outpatient (REF) | payer OTHER, SELFPAY | LOC: DHVS 10:09 | PROVIDERS: ATTENDING PHYSICIAN Surgery Vascular Surgery; FAMILY PHYSICIAN Family Medicine | DX: I77.9 Disorder of arteries and arterioles, unspecified (principal) | CPT/HCPCS: 93922; 93925; 93971 ==

== ENCOUNTER → 2025-09-01 12:55 | Outpatient (REF) | payer OTHER, SELFPAY | LOC: RAD 12:55 | PROVIDERS: ATTENDING PHYSICIAN Surgery Vascular Surgery; FAMILY PHYSICIAN Family Medicine | DX: I77.9 Disorder of arteries and arterioles, unspecified (principal) | CPT/HCPCS: 93922 ==